=== PATIENT | male | born 1930 | race Caucasian/White ===

== ENCOUNTER 2016-12-29 11:02 | Emergency (ER) | payer MEDICARE, OTHER ==
[~2016-12-29 11:02] MED LIST: ADVAIR HFA 115/12 GM IH; ALBUTEROL INH 0.3 ML INH; ALBUTEROL SULF8.5 GM IH; ALEVE220 M3 PO; AMBIEN PAK5 MG PO; AMBIEN10 M1 PO; AMBIEN5 M1 PO; AMBIEN5 MG PO; AMIODARONE HCL200 M1 PO; ASMANEX220 MC1; ASMANEX220 MC1 IH; BAYER81 MG PO; BISACODYL10 MG PR; CEFDINIR300 M1 PO; CELEBREX; CELEBREX200 MG PO; CERTAVITE PO; CERTAVITE-ANTI1 EACH PO; COLACE100 M1 PO; COMBIVENT INH14.7 GM IH; COMBIVENT INHALER INH; COMBIVENT RESPIM4 G1 INH; COMPAZINE10 MG PO; COUMADIN3 MG PO; CULTURELLE1 EAC1 PO; DESITIN113 GM AP; ENSURE HIGH PROTEIN PO; ENSURE237 ML PO; FEOSOL325 M1 PO; FERROUS SULFAT325 MG PO; ICY HOT CREAM35.4 GM TP; IPRAT-ALBUT 0.5-3 ML NEB; IRON325 M1 PO; IRON325 M2 PO; IRON325 MG PO; LEVAQUIN750 MG PO; LISINOPRIL10 MG PO; METAMUCIL PACK3.4 G1 PO; MIDODRINE HCL5 M1 PO; MIDODRINE HCL5 MG PO; MILK OF MAGNESIA PO; MULTIVIT &0.5 MG/1 M PO; MULTIVITAMINS1 EAC6 PO; NICODERM CQ1 EAC1 TD; NORCO 5/3251 TA1 PO; OMEPRAZOLE20 M2 PO; PACERONE200 M1 PO; PERCOCET 5-3251 EACH PO; PREDNISONE10 MG PO; PRILOSEC20 MG PO; PRISTIQ ER50 MG PO; PRISTIQ50 MG PO; PROAIR HFA8.5 GM INH; PROAMATINE5 MG PO; PROSCAR; PROSCAR5 MG PO; PROTONIX40 M2 PO; PROTONIX40 MG PO; SENSI-CARE PRO113 GM; SIMVASTATIN20 M1 PO; SPIRIVA18 MC1; SPIRIVA18 MCG INH; STERAPRED10 MG/DOSE PO; STOMACH PILL; THORAZINE PO; TOPROL-XL25 MG/TA5 PO; TRAMADOL HCL50 M2 PO; TRAMADOL HCL50 MG PO; TUDORZA PRESSAIR INH; TYLENOL325 M1 PO; TYLENOL500 MG PO; ULTRAM50 M1 PO; VITAMIN D 22000 UNIT PO; VITAMIN D1000 UNI1 PO; VITAMIN D1000 UNI2 PO; VITAMIN D1000 UNI3 PO; VITAMIN D1000 UNIT PO; ZESTRIL10 M3 PO; ZITHROMAX250MG Z-PAK PO; ZOCOR; ZOCOR20 M1 PO; ZOCOR20 MG PO; ZOFRAN4 MG PO; [UNRECOGNIZED DRUG - OTHER] PO; [UNRECOGNIZED DRUG - OTHER] PO; [UNRECOGNIZED DRUG - REMARK]; [UNRECOGNIZED DRUG - REMARK]; [UNRECOGNIZED DRUG - SUPPLY]
[2016-12-29] MEDS ORDERED: PETROLEUM JELL368 GM TP (11:36)
[2016-12-29] MEDS ORDERED: TYLENOL325 M2 PO (11:37)
[2016-12-29] MEDS ORDERED: ALBUTEROL2.5 MG/3 M NEB (11:37)
[2016-12-29] MEDS ORDERED: HALLS3.2 M1 MM (11:38)
[2016-12-29 12:24] LABS: BASO % 0.2 % (0-2); EOS % 1.9 % (0-7); EOSINOPHIL ABSOLUTE COUNT 0.2 tho/cmm (0.0-0.7); HGB-HEMOGLOBIN 10.7 gm/dl (13.5-17.0); IMMATURE GRANULOCYTES ABSOLUTE 0.02 tho/cmm (0-0.03); IMMATURE GRANULOCYTES PERCENT 0.2 % (0-0.3); LYMPH % 14.6 % (20-45); LYMPH ABSOLUTE COUNT 1.4 tho/cmm (0.8-4.5); MCH (MEAN CORPUSCULAR HGB) 32.8 pg (28.0-32.0); MCHC MEAN CORPUSCULAR HGB CONC 32.4 % (32.0-36.0); MCV (MEAN CELL VOLUME) 101.2 fl (82.0-96.0); MEAN PLATELET VOLUME 9.3 cmc (9.4-12.4); MONOCYTE ABSOLUTE COUNT 0.7 tho/cmm (0.0-1.2); NEUTROPHIL ABSOLUTE COUNT 7.3 tho/cmm (1.6-8.0); NEUTROPHIL-AUTOMATED 7.3 tho/cmm (1.6-8.0); NEUTROPHILS % 76.1 % (40-80); PLATELET COUNT 368 tho/cmm (150-450); RED BLOOD COUNT 3.26 mil/cmm (4.40-5.70); RED CELL DISTRIBUTION WIDTH 14.5 % (12.4-16.4); WHITE BLOOD COUNT 9.6 tho/cmm (4.0-10.0)
[2016-12-29 12:39] LABS: ANION GAP 15 mmol/L (0-20); BLOOD UREA NITROGEN 41 mg/dl (6-24); C-REACTIVE PROTEIN 2.7 mg/dl (0-0.9); CALCIUM 8.8 mg/dl (8.5-10.5); CARBON DIOXIDE-VENOUS 26 mmol/L (22-32); CHLORIDE 104 mmol/l (96-110); CREATININE 1.27 mg/dl (0.60-1.30); GLUCOSE 97 mg/dL (70-110); POTASSIUM 4.6 mmol/L (3.7-5.1); SODIUM 140 mmol/L (135-145); eGFR VALUE FOR BLACK 60 mL/Min
[2016-12-29] MEDS ORDERED: NORCO 5-325 TA1 EACH PO (13:41)
[2016-12-29] MEDS ORDERED: CEPHALEXIN500 M1 PO (13:41)
[2017-02-08] MEDS ORDERED: BENADRYL25 M3 PO (16:05)
== END 2016-12-29 14:14 ==
LOC: EDMED 11:02
PROVIDERS: Emergency Medicine
DX: S90.411A Abrasion, right great toe, initial encounter (principal); S90.414A Abrasion, right lesser toe(s), initial encounter; L03.031 Cellulitis of right toe; I10 Essential (primary) hypertension; J44.9 Chronic obstructive pulmonary disease, unspecified; Z90.89 Acquired absence of other organs; Z79.899 Other long term (current) drug therapy; X58.XXXA Exposure to other specified factors, initial encounter; Z79.51 Long term (current) use of inhaled steroids

== ENCOUNTER 2017-01-12 07:40 | Emergency (ER) | payer MEDICARE, OTHER ==
[~2017-01-12 07:40] MED LIST changes: +ALBUTEROL2.5 MG/3 M NEB; +CEPHALEXIN500 M1 PO; +HALLS3.2 M1 MM; +NORCO 5-325 TA1 EACH PO; +PETROLEUM JELL368 GM TP; +TYLENOL325 M2 PO
[2017-01-12] MEDS ORDERED: PETROLEUM JELL368 GM TP (07:52)
[2017-01-12] MEDS ORDERED: SILVADENE20 G1 TP (07:53)
[2017-01-12] MEDS ORDERED: ALBUTEROL0.63 MG/1 INH (07:54)
[2017-01-12] MEDS ORDERED: TYLENOL325 M2 PO (07:54)
[2017-01-12] MEDS ORDERED: NORCO 5-325 TA1 EACH PO (07:55)
[2017-01-12] MEDS ORDERED: HALLS7.5 MG MM (07:55)
[2017-01-12] MEDS ORDERED: ALEVE220 M4 PO (07:56)
[2017-01-12] MEDS ORDERED: [UNRECOGNIZED DRUG - OTHER] IR (07:58)
[2017-02-08] MEDS ORDERED: BENADRYL25 M3 PO (16:05)
== END 2017-01-12 10:37 ==
LOC: EDMED 07:40
DX: S42.292A Other displaced fracture of upper end of left humerus, initial encounter for closed fracture (principal); I48.91 Unspecified atrial fibrillation; I10 Essential (primary) hypertension; D64.9 Anemia, unspecified; Z98.49 Cataract extraction status, unspecified eye; Z98.890 Other specified postprocedural states; Z79.899 Other long term (current) drug therapy; W06.XXXA Fall from bed, initial encounter; Y92.129 Unspecified place in nursing home as the place of occurrence of the external cause

== ENCOUNTER 2017-01-20 08:21 | Day surgery (SDC) | payer MEDICARE, OTHER ==
[~2017-01-20 08:21] MED LIST changes: +ALBUTEROL0.63 MG/1 INH; +ALEVE220 M4 PO; +HALLS7.5 MG MM; +SILVADENE20 G1 TP; +[UNRECOGNIZED DRUG - OTHER] IR
[2017-01-20 09:02] LABS: BASO % 0.1 % (0-2); EOS % 2.5 % (0-7); EOSINOPHIL ABSOLUTE COUNT 0.2 tho/cmm (0.0-0.7); HCT-HEMATOCRIT 38.2 % (36.0-53.5); HGB-HEMOGLOBIN 12.6 gm/dl (13.5-17.0); IMMATURE GRANULOCYTES ABSOLUTE 0.02 tho/cmm (0-0.03); IMMATURE GRANULOCYTES PERCENT 0.2 % (0-0.3); LYMPH % 20.8 % (20-45); LYMPH ABSOLUTE COUNT 1.9 tho/cmm (0.8-4.5); MCH (MEAN CORPUSCULAR HGB) 32.7 pg (28.0-32.0); MCV (MEAN CELL VOLUME) 99.2 fl (82.0-96.0); MEAN PLATELET VOLUME 9.4 cmc (9.4-12.4); MONO % 7.9 % (0-12); MONOCYTE ABSOLUTE COUNT 0.7 tho/cmm (0.0-1.2); NEUTROPHIL ABSOLUTE COUNT 6.2 tho/cmm (1.6-8.0); NEUTROPHIL-AUTOMATED 6.2 tho/cmm (1.6-8.0); NEUTROPHILS % 68.5 % (40-80); PLATELET COUNT 338 tho/cmm (150-450); RED BLOOD COUNT 3.85 mil/cmm (4.40-5.70); RED CELL DISTRIBUTION WIDTH 14.4 % (12.4-16.4); WHITE BLOOD COUNT 9.1 tho/cmm (4.0-10.0)
[2017-01-20 09:15] LABS: ANION GAP 12 mmol/L (0-20); BLOOD UREA NITROGEN 35 mg/dl (6-24); CALCIUM 9.3 mg/dl (8.5-10.5); CARBON DIOXIDE-VENOUS 27 mmol/L (22-32); CHLORIDE 106 mmol/l (96-110); CREATININE 1.39 mg/dl (0.60-1.30); GLUCOSE 102 mg/dL (70-110); POTASSIUM 4.2 mmol/L (3.7-5.1); SODIUM 141 mmol/L (135-145); eGFR VALUE FOR BLACK 54 mL/Min
[2017-02-08] MEDS ORDERED: BENADRYL25 M3 PO (16:05)
== END 2017-01-20 14:10 ==
LOC: SHSC 08:21
PROVIDERS: Anesthesiology
PROC: 0Y6M0Z5 Detachment at Right Foot, Complete 2nd Ray, Open Approach (ICD-10-PCS; principal; 2017-01-20)
PROC: 0QBQ0ZZ Excision of Right Toe Phalanx, Open Approach (ICD-10-PCS; principal; 2017-01-20)
DX: S91.301A Unspecified open wound, right foot, initial encounter (principal); M86.8X7 Other osteomyelitis, ankle and foot; F41.9 Anxiety disorder, unspecified; F32.9 Major depressive disorder, single episode, unspecified; I95.1 Orthostatic hypotension; Z90.49 Acquired absence of other specified parts of digestive tract; Z79.899 Other long term (current) drug therapy
CPT/HCPCS: J0171; J0690; J3010

== ENCOUNTER 2017-02-26 | Emergency (ER) | payer MEDICARE, OTHER ==
[~2017-02-26] MED LIST changes: +BENADRYL25 M3 PO
[2017-02-26] MEDS ORDERED: CULTURELLE1 EAC1 PO (16:29)
[2017-02-26] MEDS ORDERED: CERTAVITE-ANTI1 EACH PO (16:29)
[2017-02-26] MEDS ORDERED: IPRAT-ALBUT 0.5-3 ML INH (16:30)
[2017-02-26] MEDS ORDERED: MELATONIN3 M4 PO (16:30)
[2017-02-26] MEDS ORDERED: MIDODRINE HCL5 M1 PO (16:30)
[2017-02-26] MEDS ORDERED: PETROLEUM JELL368 GM TOP (16:31)
[2017-02-26] MEDS ORDERED: PRISTIQ ER50 MG PO (16:31)
[2017-02-26] MEDS ORDERED: SODIUM CHLORI1000 ML TOP (16:33)
[2017-02-26] MEDS ORDERED: TRIPLE ANTIBIO1 EAC1 TOP (16:34)
[2017-02-26] MEDS ORDERED: VITAMIN D31000 UNI3 PO (16:34)
[2017-02-26] MEDS ORDERED: ALBUTEROL2.5 MG/3 M INH (16:35)
[2017-02-26] MEDS ORDERED: TYLENOL325 M2 PO (16:35)
[2017-02-26] MEDS ORDERED: HALLS3.2 M1 MM (16:35)
[2017-02-26] MEDS ORDERED: ALEVE220 M4 PO (16:36)
[2017-02-26] MEDS ORDERED: NORCO 5-325 TA1 EACH PO (16:36)
== END 2017-02-26 18:04 ==
DX: S01.01XA Laceration without foreign body of scalp, initial encounter (principal); J44.9 Chronic obstructive pulmonary disease, unspecified; Z87.891 Personal history of nicotine dependence; Z79.51 Long term (current) use of inhaled steroids; Z79.899 Other long term (current) drug therapy; W18.09XA Striking against other object with subsequent fall, initial encounter

== ENCOUNTER 2017-03-02 11:24 | Emergency (ER) | payer MEDICARE, OTHER ==
[~2017-03-02 11:24] MED LIST changes: +ALBUTEROL2.5 MG/3 M INH; +IPRAT-ALBUT 0.5-3 ML INH; +MELATONIN3 M4 PO; +PETROLEUM JELL368 GM TOP; +SODIUM CHLORI1000 ML TOP; +TRIPLE ANTIBIO1 EAC1 TOP; +VITAMIN D31000 UNI3 PO
[2017-03-02] MEDS ORDERED: CERTAVITE-ANTI1 EACH PO (11:54)
[2017-03-02] MEDS ORDERED: MELATONIN3 M4 PO (11:55)
[2017-03-02] MEDS ORDERED: PETROLATUM30 GM TP (11:55)
[2017-03-02] MEDS ORDERED: CULTURELLE1 EAC1 PO (11:55)
[2017-03-02] MEDS ORDERED: IPRAT-ALBUT 0.5-3 ML INH (11:55)
[2017-03-02] MEDS ORDERED: MIDODRINE HCL5 M1 PO (11:55)
[2017-03-02] MEDS ORDERED: PRISTIQ ER50 MG PO (11:56)
[2017-03-02] MEDS ORDERED: SODIUM CHLORI1000 ML IR (11:56)
[2017-03-02] MEDS ORDERED: TRIPLE ANTIBIO1 EACH TP (11:57)
[2017-03-02] MEDS ORDERED: VITAMIN D31000 UNI4 PO (11:58)
[2017-03-02] MEDS ORDERED: TYLENOL325 M2 PO (11:58)
[2017-03-02] MEDS ORDERED: ALBUTEROL2.5 MG/3 M INH (11:58)
[2017-03-02] MEDS ORDERED: HYDROCODON-ACE1 EA16 PO (11:59)
[2017-03-02] MEDS ORDERED: NAPROXEN SODIU220 M2 PO (11:59)
[2017-03-02] MEDS ORDERED: HALLS3.2 M1 MM (11:59)
[2017-03-02 12:16] LABS: BASO % 0.2 % (0-2); EOS % 2.4 % (0-7); EOSINOPHIL ABSOLUTE COUNT 0.3 tho/cmm (0.0-0.7); HCT-HEMATOCRIT 35.7 % (36.0-53.5); HGB-HEMOGLOBIN 11.9 gm/dl (13.5-17.0); IMMATURE GRANULOCYTES ABSOLUTE 0.01 tho/cmm (0-0.03); IMMATURE GRANULOCYTES PERCENT 0.1 % (0-0.3); LYMPH % 13.3 % (20-45); LYMPH ABSOLUTE COUNT 1.4 tho/cmm (0.8-4.5); MCH (MEAN CORPUSCULAR HGB) 32.2 pg (28.0-32.0); MCHC MEAN CORPUSCULAR HGB CONC 33.3 % (32.0-36.0); MCV (MEAN CELL VOLUME) 96.5 fl (82.0-96.0); MEAN PLATELET VOLUME 9.9 cmc (9.4-12.4); MONO % 8.5 % (0-12); MONOCYTE ABSOLUTE COUNT 0.9 tho/cmm (0.0-1.2); NEUTROPHILS % 75.5 % (40-80); PLATELET COUNT 333 tho/cmm (150-450); RED CELL DISTRIBUTION WIDTH 13.6 % (12.4-16.4); WHITE BLOOD COUNT 10.6 tho/cmm (4.0-10.0)
[2017-03-02 12:29] LABS: ALB/GLOB RATIO 0.7 (0.8-2.0); ALBUMIN 3.4 g/dl (3.5-5.0); ALKALINE PHOSPHATASE 113 U/L (33-138); ALT/SGPT 15 U/L (12-78); BILIRUBIN,TOTAL 0.6 mg/dl (0.0-1.5); BLOOD UREA NITROGEN 32 mg/dl (6-24); CARBON DIOXIDE-VENOUS 23 mmol/L (22-32); CHLORIDE 105 mmol/l (96-110); CREATININE 1.35 mg/dl (0.60-1.30); GLUCOSE 102 mg/dL (70-110); SODIUM 138 mmol/L (135-145); eGFR VALUE FOR BLACK 55 mL/Min
[2017-03-02 12:44] LABS: ANION GAP 15 mmol/L (0-20); AST/SGOT 18 U/L (10-40); MAGNESIUM 2.3 mg/dl (1.8-2.6); POTASSIUM 4.7 mmol/L (3.7-5.1)
[2017-03-02] MEDS ORDERED: NORCO 5-325 TA1 EACH PO (14:07)
[2017-03-02] MEDS ORDERED: TOPROL XL25 M1 PO (14:07)
[2017-03-02] MEDS ORDERED: COMPAZINE10 MG PO (14:07)
== END 2017-03-02 14:33 ==
LOC: EDMED 11:24
PROVIDERS: Emergency Medicine
DX: S09.90XA Unspecified injury of head, initial encounter (principal); I48.0 Paroxysmal atrial fibrillation; M25.512 Pain in left shoulder; G89.29 Other chronic pain; M19.90 Unspecified osteoarthritis, unspecified site; I10 Essential (primary) hypertension; R19.7 Diarrhea, unspecified; E78.00 Pure hypercholesterolemia, unspecified; J44.9 Chronic obstructive pulmonary disease, unspecified; F17.200 Nicotine dependence, unspecified, uncomplicated; W20.8XXA Other cause of strike by thrown, projected or falling object, initial encounter
CPT/HCPCS: J7030

== ENCOUNTER 2017-03-07 11:48 | Inpatient (IN) | payer MEDICARE, OTHER ==
[~2017-03-07 11:48] MED LIST changes: +HYDROCODON-ACE1 EA16 PO; +NAPROXEN SODIU220 M2 PO; +PETROLATUM30 GM TP; +SODIUM CHLORI1000 ML IR; +TOPROL XL25 M1 PO; +TRIPLE ANTIBIO1 EACH TP; +VITAMIN D31000 UNI4 PO
[2017-03-07] MEDS ORDERED: TOPROL XL25 M1 PO (12:10)
[2017-03-07 12:19] LABS: BASO % 0.2 % (0-2); EOS % 0.4 % (0-7); HCT-HEMATOCRIT 37.4 % (36.0-53.5); HGB-HEMOGLOBIN 12.4 gm/dl (13.5-17.0); IMMATURE GRANULOCYTES ABSOLUTE 0.03 tho/cmm (0-0.03); IMMATURE GRANULOCYTES PERCENT 0.3 % (0-0.3); LYMPH % 10.4 % (20-45); LYMPH ABSOLUTE COUNT 1.2 tho/cmm (0.8-4.5); MCHC MEAN CORPUSCULAR HGB CONC 33.2 % (32.0-36.0); MCV (MEAN CELL VOLUME) 96.6 fl (82.0-96.0); MEAN PLATELET VOLUME 9.8 cmc (9.4-12.4); MONO % 9.4 % (0-12); MONOCYTE ABSOLUTE COUNT 1.1 tho/cmm (0.0-1.2); NEUTROPHIL ABSOLUTE COUNT 8.9 tho/cmm (1.6-8.0); NEUTROPHIL-AUTOMATED 8.9 tho/cmm (1.6-8.0); NEUTROPHILS % 79.3 % (40-80); PLATELET COUNT 354 tho/cmm (150-450); RED BLOOD COUNT 3.87 mil/cmm (4.40-5.70); RED CELL DISTRIBUTION WIDTH 13.8 % (12.4-16.4); WHITE BLOOD COUNT 11.3 tho/cmm (4.0-10.0)
[2017-03-07 12:35] LABS: INR 1.1 INR (0.9-1.1); PROTHROMBIN TIME 12.3 SECONDS (9.0-13.6)
[2017-03-07 12:46] LABS: ESR-ERYTHROCYTE SED RATE 59 mm/hr (0-20)
[2017-03-07 12:50] LABS: ALB/GLOB RATIO 0.8 (0.8-2.0); ALBUMIN 3.6 g/dl (3.5-5.0); ALKALINE PHOSPHATASE 117 U/L (33-138); ALT/SGPT 19 U/L (12-78); BILIRUBIN,TOTAL 0.6 mg/dl (0.0-1.5); BLOOD UREA NITROGEN 43 mg/dl (6-24); CALCIUM 9.2 mg/dl (8.5-10.5); CARBON DIOXIDE-VENOUS 25 mmol/L (22-32); CHLORIDE 106 mmol/l (96-110); GLUCOSE 120 mg/dL (70-110); SODIUM 140 mmol/L (135-145); eGFR VALUE FOR BLACK 39 mL/Min
[2017-03-07 12:53] LABS: ANION GAP 14 mmol/L (0-20); AST/SGOT 19 U/L (10-40)
[2017-03-07 12:54] LABS: POTASSIUM 4.9 mmol/L (3.7-5.1); TSH-THYROID STIMULATING HORM. 2.63 uIU/ml (0.40-3.80)
[2017-03-07 14:20] LABS: URINE APPEARANCE HAZY; URINE BILIRUBIN NEGATIVE (NEG); URINE BLOOD SMALL (NEG); URINE COLOR YELLOW; URINE GLUCOSE (UA) NEGATIVE (NEG); URINE KETONE NEGATIVE (NEG); URINE LEUKOCYTE ESTERASE POSITIVE (NEG); URINE NITRITE NEGATIVE (NEG); URINE PROTEIN MODERATE (NEG); URINE SPECIFIC GRAVITY 1.015 (1.003-1.030)
[2017-03-07 14:25] LABS: URINE BACTERIA 3+; URINE WBC 100-130 /[HPF] (0-5)
[2017-03-07 20:23] LABS: URINE PRT/CR RATIO 0.59 Ratio (0.0-0.20); URINE TOTAL PROTEIN-RANDOM 64.5 mg/dl (<11.8)
[2017-03-08 00:19] LABS: MAGNESIUM 2.3 mg/dl (1.8-2.6)
[2017-03-08 00:25] LABS: POTASSIUM 3.9 mmol/L (3.7-5.1)
[2017-03-08 05:43] LABS: BASO % 0.2 % (0-2); EOS % 0.8 % (0-7); EOSINOPHIL ABSOLUTE COUNT 0.1 tho/cmm (0.0-0.7); HCT-HEMATOCRIT 35.8 % (36.0-53.5); HGB-HEMOGLOBIN 11.6 gm/dl (13.5-17.0); IMMATURE GRANULOCYTES ABSOLUTE 0.02 tho/cmm (0-0.03); IMMATURE GRANULOCYTES PERCENT 0.2 % (0-0.3); LYMPH % 9.7 % (20-45); LYMPH ABSOLUTE COUNT 0.9 tho/cmm (0.8-4.5); MCH (MEAN CORPUSCULAR HGB) 31.7 pg (28.0-32.0); MCHC MEAN CORPUSCULAR HGB CONC 32.4 % (32.0-36.0); MCV (MEAN CELL VOLUME) 97.8 fl (82.0-96.0); MONO % 7.5 % (0-12); MONOCYTE ABSOLUTE COUNT 0.7 tho/cmm (0.0-1.2); NEUTROPHIL ABSOLUTE COUNT 7.9 tho/cmm (1.6-8.0); NEUTROPHIL-AUTOMATED 7.9 tho/cmm (1.6-8.0); NEUTROPHILS % 81.6 % (40-80); PLATELET COUNT 336 tho/cmm (150-450); RED BLOOD COUNT 3.66 mil/cmm (4.40-5.70); RED CELL DISTRIBUTION WIDTH 13.9 % (12.4-16.4); WHITE BLOOD COUNT 9.7 tho/cmm (4.0-10.0)
[2017-03-08 05:44] LABS: ANION GAP 14 mmol/L (0-20); BLOOD UREA NITROGEN 38 mg/dl (6-24); CALCIUM 8.6 mg/dl (8.5-10.5); CARBON DIOXIDE-VENOUS 25 mmol/L (22-32); CHLORIDE 108 mmol/l (96-110); CREATININE 1.48 mg/dl (0.60-1.30); GLUCOSE 99 mg/dL (70-110); POTASSIUM 3.9 mmol/L (3.7-5.1); SODIUM 143 mmol/L (135-145); eGFR VALUE FOR BLACK 50 mL/Min
[2017-03-09 05:47] LABS: BASO % 0.2 % (0-2); EOS % 1.8 % (0-7); EOSINOPHIL ABSOLUTE COUNT 0.2 tho/cmm (0.0-0.7); HCT-HEMATOCRIT 32.3 % (36.0-53.5); HGB-HEMOGLOBIN 10.4 gm/dl (13.5-17.0); IMMATURE GRANULOCYTES ABSOLUTE 0.02 tho/cmm (0-0.03); IMMATURE GRANULOCYTES PERCENT 0.2 % (0-0.3); LYMPH % 12.8 % (20-45); LYMPH ABSOLUTE COUNT 1.1 tho/cmm (0.8-4.5); MCH (MEAN CORPUSCULAR HGB) 31.5 pg (28.0-32.0); MCHC MEAN CORPUSCULAR HGB CONC 32.2 % (32.0-36.0); MCV (MEAN CELL VOLUME) 97.9 fl (82.0-96.0); MEAN PLATELET VOLUME 9.4 cmc (9.4-12.4); MONO % 7.4 % (0-12); MONOCYTE ABSOLUTE COUNT 0.6 tho/cmm (0.0-1.2); NEUTROPHIL ABSOLUTE COUNT 6.4 tho/cmm (1.6-8.0); NEUTROPHIL-AUTOMATED 6.4 tho/cmm (1.6-8.0); NEUTROPHILS % 77.6 % (40-80); PLATELET COUNT 302 tho/cmm (150-450); RED CELL DISTRIBUTION WIDTH 13.8 % (12.4-16.4); WHITE BLOOD COUNT 8.3 tho/cmm (4.0-10.0)
[2017-03-09 05:56] LABS: ANION GAP 17 mmol/L (0-20); BLOOD UREA NITROGEN 29 mg/dl (6-24); CALCIUM 8.8 mg/dl (8.5-10.5); CARBON DIOXIDE-VENOUS 21 mmol/L (22-32); CHLORIDE 111 mmol/l (96-110); CREATININE 1.23 mg/dl (0.60-1.30); GLUCOSE 77 mg/dL (70-110); POTASSIUM 3.6 mmol/L (3.7-5.1); SODIUM 145 mmol/L (135-145); eGFR VALUE FOR BLACK 62 mL/Min
[2017-03-10 05:52] LABS: ANION GAP 14 mmol/L (0-20); BLOOD UREA NITROGEN 25 mg/dl (6-24); CALCIUM 8.3 mg/dl (8.5-10.5); CARBON DIOXIDE-VENOUS 23 mmol/L (22-32); CHLORIDE 110 mmol/l (96-110); CREATININE 1.27 mg/dl (0.60-1.30); GLUCOSE 92 mg/dL (70-110); POTASSIUM 3.7 mmol/L (3.7-5.1); SODIUM 143 mmol/L (135-145); eGFR VALUE FOR BLACK 60 mL/Min
[2017-03-11 04:44] LABS: BASO % 0.3 % (0-2); EOS % 4.4 % (0-7); EOSINOPHIL ABSOLUTE COUNT 0.4 tho/cmm (0.0-0.7); HCT-HEMATOCRIT 33.2 % (36.0-53.5); HGB-HEMOGLOBIN 10.9 gm/dl (13.5-17.0); IMMATURE GRANULOCYTES ABSOLUTE 0.01 tho/cmm (0-0.03); IMMATURE GRANULOCYTES PERCENT 0.1 % (0-0.3); LYMPH % 15.6 % (20-45); LYMPH ABSOLUTE COUNT 1.2 tho/cmm (0.8-4.5); MCH (MEAN CORPUSCULAR HGB) 31.7 pg (28.0-32.0); MCHC MEAN CORPUSCULAR HGB CONC 32.8 % (32.0-36.0); MCV (MEAN CELL VOLUME) 96.5 fl (82.0-96.0); MEAN PLATELET VOLUME 9.3 cmc (9.4-12.4); MONO % 8.9 % (0-12); MONOCYTE ABSOLUTE COUNT 0.7 tho/cmm (0.0-1.2); NEUTROPHIL ABSOLUTE COUNT 5.6 tho/cmm (1.6-8.0); NEUTROPHIL-AUTOMATED 5.6 tho/cmm (1.6-8.0); NEUTROPHILS % 70.7 % (40-80); PLATELET COUNT 310 tho/cmm (150-450); RED BLOOD COUNT 3.44 mil/cmm (4.40-5.70); RED CELL DISTRIBUTION WIDTH 13.6 % (12.4-16.4)
[2017-03-11 05:04] LABS: ANION GAP 14 mmol/L (0-20); BLOOD UREA NITROGEN 21 mg/dl (6-24); CALCIUM 8.7 mg/dl (8.5-10.5); CARBON DIOXIDE-VENOUS 24 mmol/L (22-32); CHLORIDE 107 mmol/l (96-110); CREATININE 1.25 mg/dl (0.60-1.30); GLUCOSE 95 mg/dL (70-110); SODIUM 140 mmol/L (135-145); eGFR VALUE FOR BLACK 61 mL/Min
[2017-03-11 05:18] LABS: POTASSIUM 4.9 mmol/L (3.7-5.1)
[2017-03-11] MEDS ORDERED: PENICILLIN V P250 M1 PO (12:12)
[2017-03-11] MEDS ORDERED: IPRAT-ALBUT 0.5-3 ML NEB (12:13)
[2017-03-11] MEDS ORDERED: ROXANOL PO/SL (12:17)
[2017-03-11] MEDS ORDERED: TYLENOL325 M2 PO (12:18)
[2017-03-11] MEDS ORDERED: ATIVAN0.5 M1 PO/SL (12:21)
[2017-03-11] MEDS ORDERED: THERABOND AP (12:23)
== END 2017-03-11 13:00 | disposition hospice, home (50) | DRG 689 ==
LOC: EDMED 11:48 → EMR2 15:21 → 5WE 16:55 → PCUB 03-08 10:39
PROVIDERS: Emergency Medicine; Hospitalist; Registered Nurse; ADMIT Family Medicine
DX: N39.0 Urinary tract infection, site not specified (principal); G92 Toxic encephalopathy; N17.9 Acute kidney failure, unspecified; R64 Cachexia; E87.2 Acidosis; I48.0 Paroxysmal atrial fibrillation; R13.10 Dysphagia, unspecified; J44.9 Chronic obstructive pulmonary disease, unspecified; E86.9 Volume depletion, unspecified; I10 Essential (primary) hypertension; Z68.1 Body mass index [BMI] 19.9 or less, adult; R62.7 Adult failure to thrive; B95.2 Enterococcus as the cause of diseases classified elsewhere; D18.1 Lymphangioma, any site; Z91.81 History of falling; K21.9 Gastro-esophageal reflux disease without esophagitis; E78.5 Hyperlipidemia, unspecified; M19.90 Unspecified osteoarthritis, unspecified site; R91.1 Solitary pulmonary nodule; N40.0 Benign prostatic hyperplasia without lower urinary tract symptoms; Z89.422 Acquired absence of other left toe(s); F17.210 Nicotine dependence, cigarettes, uncomplicated; G89.29 Other chronic pain; Z86.010 Personal history of colon polyps; Z66 Do not resuscitate; I73.9 Peripheral vascular disease, unspecified; S91.101A Unspecified open wound of right great toe without damage to nail, initial encounter
CPT/HCPCS: G8996-GN-CM; G8997-GN-CI; G8997-GN-CK; G8998-GN-CK; J0696; J1650; J2543; J3480; J7030